=== PATIENT | female | born 1965 | race Two or more races ===

== ENCOUNTER 2022-03-08 18:35 | Emergency (ER) | payer MEDICAID, OTHER ==
[~2022-03-08] VITALS: Ht 160 cm; Wt 83.9 kg
[2022-03-08] MEDS ORDERED: ONDANSETRON HCL/PF 4 MG/2 ML VIAL ONE (19:27)
[2022-03-08] MEDS ORDERED: ASPIRIN 81 MG TAB.CHEW ONE (19:27)
[2022-03-08] MEDS ORDERED: ASPIRIN 81 MG TAB.CHEW PO ONE (19:30)
[2022-03-08] MEDS ORDERED: ONDANSETRON HCL/PF 4 MG/2 ML VIAL IVP ONE (19:30)
[2022-03-08 20:06] LABS: CALCIUM, SERUM 8.9 mg/dL (8.5-10.1); CARBON DIOXIDE 28 mmol/L (21-32); CHLORIDE 106 mmol/L (98-107); CREATININE 0.7 mg/dL (0.6-1.3); GLUCOSE 113 mg/dL (74-106); POTASSIUM 4.1 mmol/L (3.5-5.1); SODIUM SERUM 141 mmol/L (136-145); UREA NITROGEN, BLOOD 13 mg/dL (7-18)
[2022-03-08 20:07] LABS: BASOPHILS # (AUTO) 0.1 K/uL (0.0-0.2); BASOPHILS % (AUTO) 0.8 % (0.0-2.0); EOSINOPHILS % (AUTO) 1.6 % (0.0-6.0); HEMATOCRIT 41 % (33-45); HEMOGLOBIN 13.5 g/dL (11.5-14.8); LYMPHOCYTES % (AUTO) 28.3 % (20.0-44.0); MEAN CORPUSCULAR HGB CONC 33 g/dl (31.0-36.0); MEAN CORPUSCULAR VOLUME 88 fL (82-100); MONOCYTES # (AUTO) 0.5 K/uL (0.1-1.30); MONOCYTES % (AUTO) 7.4 % (2.0-12.0); NEUTROPHILS # (AUTO) 4.4 K/uL (1.8-8.9); NEUTROPHILS % (AUTO) 61.9 % (43.0-81.0); PLATELET COUNT (AUTO) 304 K/uL (150-450); RED BLOOD CELL COUNT(AUTO) 4.66 MIL/uL (4.0-5.2); WHITE BLOOD COUNT (AUTO) 7.2 K/uL (4.3-11.0)
--- NOTE | 2022-03-08 20:12 | NUR ---
REPORT RECEIVED FROM RON LUGO. PATIENT IS AAOX4, COMPLAINING OF LEFT CHEST PAIN RADIATING TO LEFT SHOULDER SCALE OF 9/10. WILL INFORM MD. VITALS CHECKED. PATIENT HAS IV CANNULA G22 ON LEFT HAND.
[2022-03-08] MEDS ORDERED: MORPHINE SULFATE INJ 4 MG/ML DISP.SYRIN ONE (20:22)
[2022-03-08] MEDS ORDERED: MORPHINE SULFATE INJ 2 MG/ML DISP.SYRIN IV ONE (20:30)
[2022-03-08] MEDS ORDERED: MAG HYDROX/AL HYDROX/SIMETH 30 ML UDC PO ONE (21:30)
[2022-03-08] MEDS ORDERED: FAMOTIDINE/PF INJ 20 MG/2 ML VIAL IV ONE ×2 (21:30→21:32)
[2022-03-08] MEDS ORDERED: LIDOCAINE VISCOUS 2% UD 15 ML UDC MM ONE (21:30)
[2022-03-08] MEDS ORDERED: MAG HYDROX/AL HYDROX/SIMETH 30 ML UDC ONE (21:32)
[2022-03-08] MEDS ORDERED: LIDOCAINE VISCOUS 2% UD 15 ML UDC ONE (21:32)
[2022-03-08] MEDS ORDERED: PANT40TA2 PO (21:40)
[2022-03-08] MEDS ORDERED: HYDR-3972 PO (21:40)
--- NOTE | 2022-03-08 22:09 | NUR ---
IV CANNULA REMOVED
[2022-03-08 22:10] VITALS: BP 134/61
--- NOTE | 2022-03-08 22:10 | NUR ---
Patient discharged to home in stable condition. Written and verbal after care instructions given. Patient verbalizes understanding of instruction.
== END 2022-03-08 22:11 | disposition home or self-care (01) ==
LOC: ER 18:36
DX: R07.89 Other chest pain (principal); M79.7 Fibromyalgia; M32.9 Systemic lupus erythematosus, unspecified; Z98.890 Other specified postprocedural states
CPT/HCPCS: 99285; 96374; 71045; 96375; 93005 ×3; 85025; 80048; 36415; 84484 ×2; J2270; J3490; J2405